=== PATIENT | male | born 1985 | race African-American/Black ===

== ENCOUNTER 2022-09-06 15:50 | Emergency (ER) | payer OTHER ==
[~2022-09-06] VITALS: Ht 172.7 cm; Wt 90.0 kg
[2022-09-06 15:53] VITALS: BP 153/97
== END 2022-09-06 16:40 ==
LOC: ER 16:00
DX: M25.512 Pain in left shoulder (principal); G89.11 Acute pain due to trauma; Y35.893A Legal intervention involving other specified means, suspect injured, initial encounter; R03.0 Elevated blood-pressure reading, without diagnosis of hypertension; Z65.3 Problems related to other legal circumstances; Y93.89 Activity, other specified; Y92.89 Other specified places as the place of occurrence of the external cause
CPT/HCPCS: 99283